=== PATIENT | male | born 1965 | race Caucasian/White ===

== ENCOUNTER 2017-04-01 17:02 | Emergency (ER) | payer OTHER ==
[~2017-04-01] VITALS: Ht 188 cm; Wt 88.5 kg
[~2017-04-01 17:02] MED LIST: FLEXERIL PO; HYDROCODONE-AP1 EAC6 PO; NOHOMEMEDICATIONS
[2017-04-01 17:07] VITALS: BP 140/98
== END 2017-04-01 17:43 | disposition home or self-care (01) ==
LOC: ER 17:02
DX: S01.511A Laceration without foreign body of lip, initial encounter (principal); W22.8XXA Striking against or struck by other objects, initial encounter; Y93.89 Activity, other specified; Y92.89 Other specified places as the place of occurrence of the external cause; Y99.8 Other external cause status